=== PATIENT | female | born 1955 | race African-American/Black ===

== ENCOUNTER 2021-06-26 12:14 | Outpatient (CLI) | payer MEDICARE | END 2021-06-26 12:15 | disposition home or self-care (01) | LOC: CSHWCC 12:14 | PROVIDERS: ATTEND Nurse Practitioner Family | DX: T25.221D Burn of second degree of right foot, subsequent encounter (principal); T25.222D Burn of second degree of left foot, subsequent encounter; E78.2 Mixed hyperlipidemia; G89.11 Acute pain due to trauma; V00-Y99 External causes of morbidity ==

== ENCOUNTER 2021-07-01 09:39 | Outpatient (CLI) | payer MEDICARE | END 2021-07-01 09:40 | disposition home or self-care (01) | LOC: CSHWCC 09:39 | PROVIDERS: ATTEND Nurse Practitioner Family | DX: T25.221D Burn of second degree of right foot, subsequent encounter (principal); E78.2 Mixed hyperlipidemia; G89.11 Acute pain due to trauma; V00-Y99 External causes of morbidity | CPT/HCPCS: 97139; G0463; 99213 ==

== ENCOUNTER 2021-07-08 09:38 | Outpatient (CLI) | payer MEDICARE | END 2021-07-08 09:39 | disposition home or self-care (01) | LOC: CSHWCC 09:38 | PROVIDERS: ATTEND Nurse Practitioner Family | DX: T25.221D Burn of second degree of right foot, subsequent encounter (principal); T25.222D Burn of second degree of left foot, subsequent encounter; G89.11 Acute pain due to trauma; E78.2 Mixed hyperlipidemia; V00-Y99 External causes of morbidity | CPT/HCPCS: 99212; G0463 ==

== ENCOUNTER 2021-07-15 11:51 | Outpatient (CLI) | payer MEDICARE | END 2021-07-15 11:52 | disposition home or self-care (01) | LOC: CSHWCC 11:51 | PROVIDERS: ATTEND Nurse Practitioner Family | DX: T25.222D Burn of second degree of left foot, subsequent encounter (principal); T25.221D Burn of second degree of right foot, subsequent encounter; E78.2 Mixed hyperlipidemia; G89.11 Acute pain due to trauma; V00-Y99 External causes of morbidity | CPT/HCPCS: 16020 ==

== ENCOUNTER 2021-07-22 11:13 | Outpatient (CLI) | payer MEDICARE | END 2021-07-22 11:14 | disposition home or self-care (01) | LOC: CSHWCC 11:13 | PROVIDERS: ATTEND Nurse Practitioner Family | DX: T25.222D Burn of second degree of left foot, subsequent encounter (principal); T25.221D Burn of second degree of right foot, subsequent encounter; E78.2 Mixed hyperlipidemia; G89.11 Acute pain due to trauma; V00-Y99 External causes of morbidity | CPT/HCPCS: 99212; G0463 ==

== ENCOUNTER 2021-07-29 09:20 | Outpatient (CLI) | payer MEDICARE | END 2021-07-29 09:21 | disposition home or self-care (01) | LOC: CSHWCC 09:20 | PROVIDERS: ATTEND Nurse Practitioner Family | DX: T25.222D Burn of second degree of left foot, subsequent encounter (principal); T25.221D Burn of second degree of right foot, subsequent encounter; E78.2 Mixed hyperlipidemia; G89.11 Acute pain due to trauma; V00-Y99 External causes of morbidity ==

== ENCOUNTER 2021-08-08 13:17 | Outpatient (CLI) | payer MEDICARE | END 2021-08-08 13:18 | disposition home or self-care (01) | LOC: CSHWCC 13:17 | PROVIDERS: ATTEND Nurse Practitioner Family | DX: T25.221D Burn of second degree of right foot, subsequent encounter (principal); T25.222D Burn of second degree of left foot, subsequent encounter; E78.2 Mixed hyperlipidemia; G89.11 Acute pain due to trauma; V00-Y99 External causes of morbidity ==